=== PATIENT | female | born 1950 | race Caucasian/White ===

== ENCOUNTER 2016-09-12 10:26 | Emergency (ER) | payer MEDICARE ==
[2016-09-12 11:29] LABS: HEMOGLOBIN 13.6 gm/dl (12.3-15.3); RED BLOOD COUNT 4.95 M/UL (4.00-5.10); WHITE BLOOD COUNT 9.9 K/UL (4.5-11.0)
[2016-09-12 11:46] LABS: BUN/CREATININE RATIO 13 (0-10)
== END 2016-09-12 15:44 | disposition home or self-care (01) ==
LOC: ER1 10:26
PROVIDERS: Emergency Medicine
DX: R59.0 Localized enlarged lymph nodes (principal); Z79.891 Long term (current) use of opiate analgesic; Z79.899 Other long term (current) drug therapy
CPT/HCPCS: 36415; 70491; 71020; 80048; 83605; 84484; 85025; 85730; 93005; 96360; 99284; J7050; Q9962